=== PATIENT | female | born 1990 | race Caucasian/White ===

== ENCOUNTER 2016-04-24 18:09 | Emergency (ER) | payer BC, OTHER ==
[~2016-04-24 18:09] MED LIST: TYLENOL 325MG325 MG PO
== END 2016-04-24 23:00 | disposition home or self-care (01) ==
LOC: ER1 18:09
DX: S13.4XXA Sprain of ligaments of cervical spine, initial encounter (principal); S00.83XA Contusion of other part of head, initial encounter; M25.562 Pain in left knee; M25.561 Pain in right knee; V53.5XXA Driver of pick-up truck or van injured in collision with car, pick-up truck or van in traffic accident, initial encounter; Y92.410 Unspecified street and highway as the place of occurrence of the external cause
CPT/HCPCS: 70450; 70486; 72125; 73564; 80307; 81001; 84703; 99284

== ENCOUNTER → 2016-04-29 | Outpatient (CLI) | payer OTHER, BC | LOC: CT 12:30 | DX: N39.9 Disorder of urinary system, unspecified (principal); K76.0 Fatty (change of) liver, not elsewhere classified; K59.00 Constipation, unspecified | CPT/HCPCS: J7050; Q9962 ==